=== PATIENT | male | born 1985 | race Caucasian/White ===

== ENCOUNTER 2024-11-08 21:07 | Emergency (ER) | payer OTHER, SELFPAY ==
[2024-11-08 21:23] VITALS: BP 137/94; PULSE 79; RESP 14; TEMP 36.4; O2SAT 98; BMI 27.0
--- NOTE | 2024-11-08 21:30 | ED_ITS ---
HPI - General Adult General Time Seen by Provider: 21:31 Date Seen: 11/08/24 Chief complaint: Skin/Abscess/Foreign Body Stated complaint: fish hook in L middle finger Time Seen by Provider: 11/08/24 21:30 Source: patient and RN notes reviewed Mode of arrival: ambulatory Limitations: no limitations History of Present Illness HPI narrative: Gama is a very pleasant 39-year-old male with unknown tetanus who comes to the emergency room for removal of a fishhook in his left middle finger. Patient states that his son had some leuks on his clothes and he was merely removing it when his imbedded in his left middle finger and he was unable to remove it at home. Nursing staff tells me that they are unable to find tetanus in the [facility] records. He is able to flex and extend his finger. This is a brand new hook having never been in the water or caught a fish. Related Data Home Medications ?Medication ?Instructions ?Recorded ?Confirmed No Known Home Medications 11/08/2410/18 Allergies Allergy/AdvReac Type Severity Reaction Status Date / Time No Known Drug Allergies Allergy Verified 11/08/24 21:22 Exam Narrative: Exam Narrative: Very pleasant well-spoken young man in no acute distress. Examination of the hook shows it to be a small treble hook. It is imbedded into the subcutaneous tissue. Does not appear deep enough to have compromised any bony area. A straight Lilia is used and with a downward and quick external twisting movement the hook is removed with minimal difficulty. He is able to flex extend without difficulty and bleeding is minimal. Patient is then instructed to wash his hands with soap in the sink and let the water run into this area. Const: Vital Signs, click to edit/add: Vital Signs - 24 hr 11/08/24 21:23 Temperature 97.6 F Pulse Rate [Right Pulse Oximeter] 79 Respiratory Rate 14 Blood Pressure [Ri ght Upper Arm] 137/94 H Pulse Oximetry 98 Oxygen Delivery Me thod Room Air Documenting provider has reviewed patient's vital signs: yes Course Course ED Course: I did initially order tetanus after speaking to patient. I did not feel the need to order IgG. Nursing staff now tells me that they have found evidence of a vaccination in 2021 and therefore we can cancel this vaccination today after checking with patient. Vital Signs Vital signs: Initial Vital Signs Temperature 97.6 F 11/08/24 21:23 Temperature Source Temporal Artery Scan 11/08/24 21:23 Pulse Rate 79 11/08/24 21:23 Respiratory Rate 14 11/08/24 21:23 Blood Pressure 137/94 H 11/08/24 21:23 Blood Pressure Mean 108 H 11/08/24 21:23 Blood Pressure Position Sitting 11/08/24 21:23 Pulse Oximetry 98 11/08/24 21:23 Oxygen Delivery Method Room Air 11/08/24 21:23 Vital Signs Temperature 97.6 F 11/08/24 21:23 Pulse Rate 79 11/08/24 21:23 Respiratory Rate 14 11/08/24 21:23 Blood Pressure 137/94 H 11/08/24 21:23 Pulse Oximetry 98 11/08/24 21:23 Oxygen Delivery Method Room Air 11/08/24 21:23 Temperature 97.6 F 11/08/24 21:23 Pulse Rate 79 11/08/24 21:23 Respiratory Rate 14 11/08/24 21:23 Blood Pressure 137/94 H 11/08/24 21:23 Pulse Oximetry 98 11/08/24 21:23 Oxygen Delivery Method Room Air 11/08/24 21:23 Medical Decision Making MDM Narrative Medical decision making narrative: 1. [place] removal-monitor wound for infection. Have given patient a handwritten prescription for Keflex 500 mg q.i.d. x7 days should he started experiencing increasing redness or fever or signs of infection. 2. Tetanus-patient states that he has no recollection of receiving a tetanus from [facility] in 2021 and would like to go ahead with tetanus here which we will do. 2. Disposition-home at this time. Return for worsening symptoms and as needed. Discharge Plan Discharge Clinical Impression: [place] injury to finger Patient Disposition: Home, Self-Care Condition: Improved Additional Instructions: Monitor for infection-likely be sore in this area but if you notice increasing redness, fever, drainage that is pus please start antibiotic Keflex which is hand written and given to you today. Otherwise, do not fill the prescription if improving. Return as needed for worsening symptoms. Prescriptions: No Action No Known Home Medications Stand Alone Forms: AB Groupth Info Instructions
--- OUTSIDE RECORDS SUMMARY | 2024-11-08 21:53 | XMS_ITS | Clinical Summary ---
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 Other chronic allergic conjunctivitis 02/11/2011 Allergic rhinitis, cause unspecified 12/30/2007 Immunizations Immunization Administration Dates Next Due COVID-19 vaccine (Moderna 10 0mcg/0.5mL) PF, MDV 08/10/2020,07/12/2020 HIB PRP-T (ActHIB,Hiberix) 02/04/2007 Hepatitis B (Peds) 04/06/1998,11/04/1997, 998 Influenza, IIV4 (=>6mos) MDV 02/03/2020 MMR 09/29/1997 Meningococcal Vaccine (Menomune) 02/04/2007 Pneumococcal Poly,23-Valent (Pneumovax) 02/05/20 07 Td (Age >=7 Years) 09/29/1997 Tdap 04/16/2022 Family History Medical History Relation Name Comments Other Brother 1 Edvin A rare eye canc er [facility] Brother 2 Khris Good [facility] Father Cancer Maternal Grandfather skin ca ncer-melanoma Other Maternal Grandmother abdomin al tumor [facility] Mother Cancer-colon Paternal Grandmother No Known Problems Son 1 Buddy No Known Problems Son 2 Shahram No Known Problems Son 3 Jerez No Known Problems Son 4 [place] Cancer-prostate No Family History Relation Name Status Comments Brother 1 Devin Alive Brother 2 Khris Alive Father Alive Maternal Grandfather Maternal Grandmother Alive Mother Alive Paternal Grandfather Paternal Grandmother Son 1 Buddy Alive Son 2 Shahram Alive Son 3 Jerez Alive Son 4 [place] Alive Social History Tobacco Use Types Packs/Day Years Used Date Smoking Tobacco: Never Smokeless Tobacco: Never Tobacco Cessation:Counseling Given: Yes Alcohol Use Standard Drinks/Week Comments Yes 0 (1 standard drink = 0.6 oz pure alcohol) A couple of times a week; 2 drinks at a time PHQ-2 Answer Date Recorded PHQ-2 TOTAL SCORE 0 04/16/2022 Social Connections Answer Date Recorded Do you often feel lonely or isolated from those around you? 0 02/18/2024 Financial Resource Strain Answer Date R ecorded Difficulty of Paying Living Expenses 3 02/18/2024 Difficulty of Paying Living Expenses Not on file 02/18/2024 Food Insecurity Answer Date Recorded Do you worry your food will run out before you are able to buy more? 1 02/18/2024 Transportation Needs Answer Date Record ed Does lack of transportation keep you from medica l appointments? 1 02/18/2024 Does lack of transportation keep you from work, meetings or getting things that you need? 1 02/18/2024 Housing Stability Answer Date Recorded What is your housing situation today? 1 02/18/2024 Utilities Answer Date Recorded Do you have trouble paying f or utilities (for example, heat, electricity, water, phone)? 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 Not on file Not on file Not on f ile Obstetrics History Last Filed Vital Signs Vital Sign Reading Time Taken Comments Blood Pressure 136/82 04/20/2024 8:03 AM INSTRUMENTATION TECH Pulse 89 04/20/2024 8:03 AM INSTRUMENTATION TECH Temperature 37.2 C (98.9 F) 12/14/2020 11:27 AM CDT Respiratory Rate 18 05/22/2018 10:3 6 AM INSTRUMENTATION TECH Oxygen Saturation 97% 04/20/2024 8:03 AM INSTRUMENTATION TECH Inhaled Oxygen Concentration - - Weight 93.8 kg (206 lb 14.4 oz) 04/20/2024 8:03 AM INSTRUMENTATION TECH Height 185.4 cm (6' 1) 04/16/2022 1:51 PM INSTRUMENTATION TECH Body Mass Index 27.3 04/16/2022 1:51 PM INSTRUMENTATION TECH Plan of Treatment Health Maintenance Due Date Last Done Comments BMI (ht and wt on same day) for age 18+ 04/16/2023 04/16/2022, 12/14/2020, 06/26/2019, Additional history exists Depression screening for age 12+ 04/16/2023 04/16/2022, 12/14/2020 COVID-19 vaccine series ( season) 2024 08/10/2020, 07/12/2020 Influenza Vaccine (Season Ended) 2025 02/03/2020 Lipids for age 35-44 04/16/2027 04/16/2022, 05/22/19 19 Tetanus booster 04/16/2032 04/16/2022, 09/29/1997 Hepatitis B series for 19+ Completed 04/06, 11/04/1997, 09/29/1997 Pneumococcal series for age 6-49 Aged Out 02/04/2007 No longer eligible based on patient's age to complete this topic HIV for age 15-65 Completed 04/16/2022 Hepatitis C screening for age 18-79 Completed 04/16/2022 Tdap Completed 04/16/2022 Procedures Procedure Name Priority Date/Time Associated Diagnosis Comments ANTI HIV 1/2 Routine 04/16/2022 2:12 PM INSTRUMENTATION TECH Encounter for screening for HIV ANTI HCV Routine 04/16/2022 2:12 PM INSTRUMENTATION TECH Need for hepatitis C screening test LIPID PANEL W REFLEX MEASURED LDL Routine 04/16/2022 2:12 PM INSTRUMENTATION TECH Screening, lipid from Last 3 Months or Most Recently Relevant to Health Maintenance Results * LIPID PANEL W REFLEX MEASURED LDL (04/16/2022 2:12 PM INSTRUMENTATION TECH) CHOLESTEROL,TOTAL 178 100 - 199 mg/dL 04/18/2022 2:49 PM INSTRUMENTATION TECH [facility] TRIGLYCERIDES 84 <150 mg/dL 04/18/2022 2:49 PM INSTRUMENTATION TECH [facility] HDL CHOLESTEROL 74 >40 mg/dL 2:49 PM INSTRUMENTATION TECH [facility] NON-HDL CHOLESTEROL 104 <145 mg/dl 04/18/2022 2:49 PM INSTRUMENTATION TECH [facility] CHOL/HDL RATIO 2.41 <4.50 04/18/2022 2:49 PM INSTRUMENTATION TECH [facility] LDL CHOLESTEROL 87 <=130 mg/dL 04/18/2022 2:49 PM INSTRUMENTATION TECH [facility] VLDL CHOLESTEROL 17 <=30 mg/dL 04/18/2022 2:49 PM INSTRUMENTATION TECH [facility] PROVIDER ORDERED STATUS RANDOM 04/18/2022 2:49 PM INSTRUMENTATION TECH [facility] Blood BLOOD SPECIMEN / Unknown Venipuncture / Unknown 04/16/2022 2:12 PM INSTRUMENTATION TECH 04/16/2022 2:12 PM INSTRUMENTATION TECH Lisa Mendez MD CHEMISTRY Final R esult [facility] [address] [place] [id number], [place] * ANTI HCV (04/16/2022 2:12 PM INSTRUMENTATION TECH) Pathologist [facility] HEPATIT[facility] ANTIBODY Non-React homer Non-React homer 04/18/2022 3:17 PM INSTRUMENTATION TECH [facility] Comment:Antibodies to HCV no t detected; does not exclude the possibility of exposure to HCV. Blood BLOOD SPECIMEN / Unknown Venipuncture / Unknown 04/16/2022 2:12 PM INSTRUMENTATION TECH 04/16/2022 2:12 PM INSTRUMENTATION TECH Lisa Mendez MD SEND OUTS Final R esult [facility] [address] [place] [id number], [place] * ANTI HIV 1/2 (04/16/2022 2:12 PM INSTRUMENTATION TECH) HIV-1/HIV-2 ANTIBODY Non-Reacti ve Non-Reacti ve 04/18/2022 3:01 PM INSTRUMENTATION TECH [facility] Comment:HIV-1 p24 and HIV-1/ HIV-2 Ab not detected. Blood BLOOD SPECIMEN / Unknown Venipuncture / Unknown 04/16/2022 2:12 PM INSTRUMENTATION TECH 04/16/2022 2:12 PM INSTRUMENTATION TECH us Lisa Mendez MD SEND OUTS Final R esult [facility] [address] [place] [address], [place] from Last 3 Months or Most Recently Relevant to Health Maintenance [place] [id number] Care Teams Caddy Relationship Specialty Start Date End Date Pcp, No . PCP - General 08/12/18
--- OUTSIDE RECORDS SUMMARY | 2024-11-08 21:53 | XMS_ITS | Data Portability ---
Author Organization [place] [facility] Address [address] [place] [address] Assessment Encounter Date Assessment Date Assessment LastModified by Organization Details LastModified Time 10/03/2021 10/03/2021 After a thorough discussion of the preparation, procedure details, risks, possible complications, post-operative care and instructions the patient wishes to proceed with vasectomy. He was given an opportunity to ask questions related to the above information. Not available 10/03/2021 10:40:59 11/06/2021 11/06/2021 The vasectomy was performed without complications. We reviewed post-procedure instructions and the importance of post vasectomy semen analysis [email or web address] Not available 11/06/2021 11:56:29 Plan of Treatment Reminders Order Date Submit Date Provider Last Modified By Organization Details Last Modified Time Details Appointments None recorded. Lab None recorded. Referral None recorded. Procedures None recorded. Surgeries None recorded. Imaging None recorded. Medication Orders cephalexin 500 mg capsule 2021 0[address] [id number] [employer], [facility], [address], 10:53:55 Patient TargetsNo targets recorded. Patient Instructions Encounter Date Encounter Id Patient Instructions Last Modified By Organization Details Last Modified Time 10/03/2021 [id number] SURGICAL ELECTIV E STERILIZATION: VASECTOMY WHAT IS A VASECTOMY? A vasectomy makes a man sterile by obstructing the flow of sperm through the vas deferens. A small puncture in the scrotum is used to isolate a section of the vas deferens. A small portion of the vas deferens is then removed and the vas is occluded. The procedure is typically performed in the office using a local anesthesia, but can be performed at a surgery center under sedation. (Please check with your insurance carrier if you would like sedation, to make sure you qualify.) After a vasectomy it takes at least 3 months to completely clear your ejaculation of sperm. We provide you with a container for a semen analysis to prove that yourvasectomy has been successful (Note: some men have to leave multiple samples to show that their vasectomy has been successful. Please see the [facility] Post-Vasectomy Instruction Sheet for additional details). We believe that proving your sterility is your responsibility. We try to make it easy for you, but you are responsible for collecting and bringing your sample to our office. You must continue to use other forms of contraception until you prove that your vasectomy has been successful. SCHEDULING A VASECTOMY Scheduling a vasectomy is easy. It will consist of a brief office visit with a surgeon to discuss the risks of the procedure and so the surgeon can make sure that you are a good candidate for a vasectomy. Once you are medically cleared and questions are answered, another appointment is made for the actual procedure. POSSIBLE RISKS FROM HAVING A VASECTOMY 1. Recanalization: This word means spontaneous reconnection of the vas deferens and failure of the vasectomy. This complication is rare. Although it can occur at any time, even years later, it most often occurs during the first 6-8 weeks after the procedure. We can t say this enough: Patients must prove that they are sterile by providing semen samples void of sperm before discontinuing other forms of control. 2. : Believe it or not, there are patients who prove they have no sperm in their semen but still father a child. The rate of after a successful vasectomy reported in literature is 0.05% or less. 3. Infection: Uncommon, and usually mild. Most often it can be treated with antibiotics. 4. Bleeding: Usually mild, although a large blood clot called a hematoma can develop and typically resolve by itself. 5. Pain: Pain usually lasts several days and goes away. Pain that lasts months to years is rare. 6. Sperm Granuloma: This is a small scar that sometimes forms where the vas is cut and is not harmful. 7. Sperm Antibodies: These antibodies help the body get rid of the sperm. They are not harmful to you but may make it difficult to achieve if you have the vasectomy reversed. PREPARING FOR A VASECTOMY How to choose a good appointment time: Carve a few days out of your busy schedule when you can recover. Too many men try to go back to normal activities too soon. Men with desk-jobs can usually go back to work after a weekend; men who do heavy labor may want to have a full week set aside to recover. Most men won t need that sort of time, but for those who do it is nice to have. Seven days before the procedure: Stop taking aspirin, ibuprofen (Advil, Motrin), vitamin E, herbal supplements, or any medication that you take to thin the blood. If you are on Warfarin, Coumadin or Plavix, call you physician regarding these medications. Make sure you have some tight underwear or a jock strap to bring to the vasectomy appointment. Wearing supportive underwear for a few days rather than boxers helps to prevent swelling. Buy some triple antibiotic ointment (Bacitracin, Neosporin, generic) to put on the puncture sites. You won t need a big tube because the incisions are small and you only need to put it on for a few days. The day of the procedure: Eat normally unless you are being anesthetized. Please shower or wash the scrotum before the procedure to help reduce the risk of infection. Remember to bring the supportive underwear or jock strap so you can wear it home. Having someone drive you is only mandatory if you are being sedated. AFTER YOUR VASECTOMY Go home. Relax. Show this sentence to your : Plan on being lazy for at least [address] an ice pack on the scrotum (one hour on/one hour off-do not put ice directly on the skin) to minimize swelling. You may shower after 24 hours. Be careful in the shower if you are taking any new prescription medication for the vasectomy, such as narcotic pain medication. Do not lift anything over 20 pounds for seven days. After that, use your judgment. A good rule of thumb: if you are wondering if you should, you probably shouldn t. Resume normal activity slowly. Wait at least seven days before resuming sexual activity, preferably two weeks. It is normal to have discomfort with sex initially. Don t worry, that gets better quickly. It takes some men a few weeks to start feeling totally normal, so be patient. Don t worry about calling with questions if you don t think you are healing well enough; most of the time you just need a little reassurance. Issues that require a phone call are: fever above 100.5; bleeding that doesn t stop for a couple hours after the procedure; progressive scrotal swelling; incision drainage; pain that cannot be controlled with pain medication. A FINAL REMINDER You are not sterile until your semen is completely free of sperm. You must take the responsibility to bring samples into our office to prove your vasectomy is a success. If you follow the instructions above it should be. Not available 10/03/2021 10:40:59 Patient is a 36-year-old male that presents today for vasectomy consult. Patient is with four children, him and are on the same page regarding sterilization. Bilateral vasa palpable on exam. Antibiotic prophylaxis was prescribed. After a thorough discussion of the preparation, procedure details, risks, possible complications, post-operative care and instructions the patient wishes to proceed with vasectomy. He was given an opportunity to ask questions related to the above information. He understands that a vasectomy is intended to be permanent. The patient understands that while vasectomy reversal is possible, after a vasectomy reversal is not assured. He also understands that a vasectomy reversal is almost always associated with a large, [id number] cost. He does understand that reestablishment of sperm flow through the vas deferens is extremely rare but possible and may result in an unexpected at any time after his vasectomy. Furthermore, he understands that control must be used after vasectomy is performed until He is cleared for unprotected intercourse. He has read the Vasectomy Patient Info Book provided to him and was given an opportunity to answer questions related to the procedure and post-op care. [email or web address] Not available 10/03/2021 10:56:36 11/06/2021 [id number] AFTER YOUR VASECTOMY Go home. Relax. Show this sentence to your : Plan on being lazy for at least [address] an ice pack on the scrotum (one hour on/one hour off-do not put ice directly on the skin) to minimize swelling. You may shower after 24 hours. Be careful in the shower if you are taking any new prescription medication for the vasectomy, such as narcotic pain medication. Do not lift anything over 20 pounds for seven days. After that, use your judgment. A good rule of thumb: if you are wondering if you should, you probably shouldn t. Resume normal activity slowly. Wait at least seven days before resuming sexual activity, preferably two weeks. It is normal to have discomfort with sex initially. Don t worry, that gets better quickly. It takes some men a few weeks to start feeling totally normal, so be patient. Don t worry about calling with questions if you don t think you are healing well enough; most of the time you just need a little reassurance. Issues that require a phone call are: fever above 100.5; bleeding that doesn t stop for a couple hours after the procedure; progressive scrotal swelling; incision drainage; pain that cannot be controlled with pain medication. A FINAL REMINDER You are not sterile until your semen is completely free of sperm. You must take the responsibility to bring samples into our office to prove your vasectomy is a success. If you follow the instructions above it should be. [email or web address] Not available 11/06/2021 11:56:29 Reason for Referral None Reported. Problems No Known Problems Procedures Surgical History Date Name Laterality Status Provider Name and Address Organization Details Recorded Time 11/06/2021 Vasectomy completed Nuno Peterson MD [address] [place] [address],[address], [place], [id number] 11/06/2021 12:46:58 Imaging Results None recorded. Procedure Notes None recorded. Medical Equipment None Reported. Allergies No known drug allergies Medications Name Sig Start Date Stop Date Status Note LastModified by Organization Details LastModified Time sulfamethox azole 800 mg-trimetho prim 160 mg tablet TAKE 1 TABLET BY MOUTH TWICE A DAY FOR 14 DAYS 10/03 completed Not Available Not Available Not Available cephalexin 500 mg capsule TAKE 1 CAPSULE THE MORNING OF YOUR VASECTOMY active Not Available Not Available No t Available Vitals Date Recorded Body height Provider Name an d Address Organization Details Last Updated DateTime 10/03/2021 182.88 cm Abbi Vitale [facility] 10/03/2021 10:43:47 Date Recorded Body height Provider Name an d Address Organization Details Last Updated DateTime 11/06/2021 182.88 cm Kimi Guillen [facility] 11/06/2021 11:57:16 Social History Question Answer Notes LastModified by Organizat ion Details LastModified Time Tobacco Smoking Status Never Smoker Abbi flood [facility] 10/03/2021 10:45:23 What Is Your Level Of Caffeine Consumption? Moderate Information not available 10/03/2021 Race Na Information not available 10/03/2021 Preferred Language Hong Konger Information not available 10/03/2021 Recreational Drug Use No Information not available 10/03/2021 Could You Be ? No Information not available 10/03/2021 What Was The Date Of Your Most Recent Tobacco Screening? 11/06/2021 Information not available 11/06/2021 What Is Your Relationship Status? Information not available 10/03/2021 Has Tobacco Cessation Counseling Been Provided? Yes Information not available 11/06/2021 On What Date Was Tobacco Cessation Counseling Provided? 11/06/2021 Information not available 11/06/2021 Sex: Unknown Functional Status Question Answer Note LastModified by Organizat ion Details LastModified Time Do you use any illicit or recreational drugs? No Information not available 10/03/2021 Do you or have you ever used any other forms of tobacco or nicotine? No Information not available 10/03/2021 What is your level of alcohol consumption? Moderate Information not available 10/03/2021 Mental Status None recorded. Family History Nothing Reported. Medical History Condition Response Sexually Transmitted Infection N Diabetes N Other N Bleeding Disorder N High Blood Pressure N Kidney Stones N High Cholesterol N GERD/Acid Reflux N Heart Disease N Cancer N Lung Disease N Depression N Immunizations Vaccine Type Date Status Note Provider Nam e and Address Organization Details Recorded Time COVID-19, mRNA, LNP-S, PF, 100 mcg/0.5mL dose or 50 mcg/0.25mL dose 1 completed Abbi flood [facility] 10/03/2021 10:44:04 pneumococcal polysaccharide PPV23 7 completed Abbi flood, [facility] 10/03/2021 10:44:04 Hib (PRP-T) 7 completed Abbi flood, [facility] 10/03/2021 10:44:04 COVID-19, mRNA, LNP-S, PF, 100 mcg/0.5mL dose or 50 mcg/0.25mL dose 1 completed Abbi flood [facility] 10/03/2021 10:44:04 Influenza, split virus, quadrivalent, preservative 0 completed Abbi flood, [facility] 10/03/2021 10:44:04 meningococcal MPSV4 7 completed Abbi flood, [facility] 10/03/2021 10:44:04 Past Encounters Encounter ID Performer Location Encounter Start Date Encounter Closed Date Diagnosis/Indication Diagnosis SNOMED-CT Code Diagnosis ICD10 Code Diagnosis Note [id number] ABNER RM [address] [address] 10/03/2021 10:33:46 10/03/2021 11:47:51 Male sterilization 123125233 Z30.2 [id number] MD Jaime SalinasWomatt [address] [address] 11/06/2021 11:47:10 11/06/2021 13:17:25 Male sterilization 576219433 Z30.2 Health Concerns Section Related Observation LastModified by Organization Detai ls LastModified Time None Recorded Concern Status LastModified by Organization Details LastModified Time None Recorded Advance Directives Directive None Recorded Payers Insurance Date Sequence Insurance Name Policy Number Policy Read Covered Member ID Read Member ID Guarantor Name 11/03/2021 1 PREFERREDONE (PPO) [id number] Gama Hazel [id number] Gama Hazel Notes Date Note Type Note Provider Name and Address Organization Details Recorded Time 10/03/2021 text/html Patient is a 36-year-old male that presents today for vasectomy consult. Patient is with four children. Him and are on the same page regarding procedure. No previous urologic history. ABNER RM [address] [place] [address],[address], [place], [address], [facility] 10/03/2021 10:56:45 11/06/2021 text/html The patient presents today for his vasectomy procedure. He has read the Vasectomy Patient Informational Handout provided to him. He understands that a vasectomy is permanent. He is certain that he and his mate do not want to conceive any more children. He has not developed new medical problems since the last visit. He understands that control protection must be used after his vasectomy until he has submitted a post vasectomy semen analysis and is cleared for unprotected intercourse. Nuno Peterson MD [address], [place], [address], [facility] 11/06/2021 12:47:05
== END 2024-11-08 22:05 | disposition home or self-care (01) ==
LOC: ED 21:50
PROVIDERS: Emergency Provider Family Medicine
DX: S60.453A Superficial foreign body of left middle finger, initial encounter (principal); Y93.19 Activity, other involving water and watercraft
CPT/HCPCS: 10120; 99283